=== PATIENT | female | born 1940 | race Caucasian/White ===

== ENCOUNTER 2021-07-08 21:13 | Inpatient (IN) | payer OTHER, SELFPAY ==
[~2021-07-08] VITALS: Ht 154.9 cm; Wt 75.7 kg
[2021-07-08 21:20] VITALS: BP_SYST 155
[2021-07-08] MEDS ORDERED: NACL 0.9% 1,000 ML IV ONE (22:30)
[2021-07-08] MEDS ORDERED: cefTRIAXone 1 GM IVPB PREMIX 50 ML IV ONE (22:30)
[2021-07-08 22:41] LABS: BILIRUBIN,URINE NEGATIVE (NEGATIVE); BLOOD, URINE NEGATIVE (NEGATIVE); CLARITY/URINE CLEAR (CLEAR); COLOR,URINE YELLOW (YELLOW); GLUCOSE,URINE NEGATIVE (NEGATIVE); KETONES,URINE 1+ (NEGATIVE); LEUKOCYTE ESTERASE ,URINE NEGATIVE (NEGATIVE); NITRITE, URINE NEGATIVE (NEGATIVE); PROTEIN URINE 1+ (NEGATIVE); UROBILINOGEN,URINE 0.2 (0.2-1.0)
[2021-07-08 22:57] LABS: BACTERIA,URINE MODERATE /HPF (None Seen); RBC,URINE 0-3 /HPF (0-3)
[2021-07-08 22:58] LABS: MUCUS,URINE None Seen /LPF (None Seen)
[2021-07-08] MEDS ORDERED: NACL 0.9% 800 ML IV ONE (23:30)
[2021-07-08] MEDS ORDERED: ONDANSETRON HCL 4 MG/2 ML VIAL IVP ONE (23:30)
[2021-07-08] MEDS ORDERED: ACETAMINOPHEN 325 MG TABLET PO PRN (23:45)
[2021-07-08] MEDS ORDERED: D5/0.45 NS 1,000 ML IV ONE (23:45)
[2021-07-08] MEDS ORDERED: ONDANSETRON HCL 4 MG/2 ML VIAL IVP PRN (23:45)
[2021-07-08] MEDS ORDERED: cloNIDine HCL 0.1 MG TABLET PO PRN (23:45)
[2021-07-08 23:50] LABS: BASOPHILS % (AUTO) 0.6 % (0.0-2.0); EOSINOPHILS % (AUTO) 0.4 % (0.0-4.0); HEMATOCRIT 38.8 % (36-48); HEMOGLOBIN 12.7 g/dL (12.0-16.0); LYMPHOCYTES # (AUTO) 0.5 K/uL (1.0-5.5); LYMPHOCYTES % (AUTO) 13.7 % (20.5-51.5); MEAN CORPUSCULAR HEMOGLOBIN 33 pg (27-31); MEAN CORPUSCULAR HGB CONC 33 % (32-36); MEAN CORPUSCULAR VOLUME 100 fL (79.0-98.0); MONOCYTES # (AUTO) 0.5 K/uL (0.0-1.0); MONOCYTES % (AUTO) 15.4 % (1.7-9.3); NEUTROPHILS # (AUTO) 2.3 K/uL (1.8-7.7); NEUTROPHILS % (AUTO) 69.9 % (40.0-70.0); PLATELET COUNT (AUTO) 158 K/uL (130-430); RED BLOOD CELL COUNT(AUTO) 3.87 MIL/uL (4.2-6.2); RED CELL DISTRIBUTION WIDTH 13.6 % (9.0-15.0); WHITE BLOOD COUNT (AUTO) 3.3 K/uL (4.8-10.8)
[2021-07-08 23:54] LABS: ANION GAP 7 (5-15); CALCIUM 8.2 mg/dL (8.4-11.0); CHLORIDE 104 mmol/L (98-107); CREATININE 0.53 mg/dL (0.55-1.30); GLUCOSE 110 mg/dL (70-99); POTASSIUM 3.5 mmol/L (3.5-5.1); SODIUM SERUM 141 mmol/L (136-145); UREA NITROGEN, BLOOD 14 mg/dL (8-21)
[2021-07-08 23:57] LABS: PROTHROMBIN TIME 10.4 SECS (9.5-12.5)
[2021-07-09 00:02] LABS: ALANINE AMINOTRANSFERASE 32 U/L (12-78); ALBUMIN 2.8 g/dL (3.4-4.8); ASPARTATE AMINOTRANSFERASE 30 U/L (10-37); TOTAL BILIRUBIN 0.5 mg/dL (0.0-1.0)
[2021-07-09] MEDS: cefTRIAXone 1 GM in D5W 50 ML IV SCH (03:00)
[2021-07-09 04:00] VITALS: BP_SYST 155
[2021-07-09 04:13] VITALS: BP_SYST 155
[2021-07-09 10:00] VITALS: BP_SYST 122
[2021-07-09] MEDS ORDERED: guaiFENesin/DEXTROMETHORPHAN 10 ML UDC PO PRN (11:15)
[2021-07-09 16:00] VITALS: BP_SYST 151
[2021-07-09 20:00] VITALS: BP_SYST 131
[2021-07-09] MEDS: ASCORBIC ACID 500 MG TABLET PO SCH (21:51)
[2021-07-09] MEDS: DOXYCYCLINE HYCLATE 100 MG in D5W 100 ML IV SCH (21:51)
[2021-07-10] VITALS: BP_SYST 150
[2021-07-10 07:52] LABS: ANION GAP 8 (5-15); CALCIUM 8.2 mg/dL (8.4-11.0); CHLORIDE 104 mmol/L (98-107); CREATININE 0.37 mg/dL (0.55-1.30); GLUCOSE 96 mg/dL (70-99); POTASSIUM 3.7 mmol/L (3.5-5.1); SODIUM SERUM 140 mmol/L (136-145); UREA NITROGEN, BLOOD 5 mg/dL (8-21)
[2021-07-10 08:00] VITALS: BP_SYST 140
[2021-07-10 08:10] LABS: ALANINE AMINOTRANSFERASE 24 U/L (12-78); ALBUMIN 2.6 g/dL (3.4-4.8); ASPARTATE AMINOTRANSFERASE 34 U/L (10-37); LACTATE DEHYDROGENASE 343 U/L (81-234); TOTAL BILIRUBIN 0.5 mg/dL (0.0-1.0)
[2021-07-10] MEDS: THIAMINE HCL 100 MG TABLET PO SCH (08:49)
[2021-07-10] MEDS: ASCORBIC ACID 500 MG TABLET PO SCH ×2 (08:49→23:40)
[2021-07-10] MEDS: CHOLECALCIFEROL (VITAMIN D3) 2,000 UNIT TABLET PO SCH (08:49)
[2021-07-10 09:03] LABS: INR 0.9 (0.8-1.2); PROTHROMBIN TIME 9.8 SECS (9.5-12.5)
[2021-07-10 10:38] LABS: C-REACTIVE PROTEIN QUANT 3.8 mg/dL (0-0.5)
[2021-07-10 11:46] LABS: BASOPHILS % (AUTO) 0.4 % (0.0-2.0); EOSINOPHILS % (AUTO) 0.2 % (0.0-4.0); HEMATOCRIT 39.4 % (36-48); HEMOGLOBIN 13.2 g/dL (12.0-16.0); LYMPHOCYTES # (AUTO) 0.5 K/uL (1.0-5.5); LYMPHOCYTES % (AUTO) 14.6 % (20.5-51.5); MEAN CORPUSCULAR HEMOGLOBIN 33 pg (27-31); MEAN CORPUSCULAR HGB CONC 34 % (32-36); MEAN CORPUSCULAR VOLUME 99 fL (79.0-98.0); MONOCYTES # (AUTO) 0.5 K/uL (0.0-1.0); MONOCYTES % (AUTO) 14.1 % (1.7-9.3); NEUTROPHILS # (AUTO) 2.6 K/uL (1.8-7.7); NEUTROPHILS % (AUTO) 70.7 % (40.0-70.0); PLATELET COUNT (AUTO) 184 K/uL (130-430); RED CELL DISTRIBUTION WIDTH 13.4 % (9.0-15.0); WHITE BLOOD COUNT (AUTO) 3.6 K/uL (4.8-10.8)
[2021-07-10] MEDS: DOXYCYCLINE HYCLATE 100 MG in D5W 100 ML IV SCH ×2 (13:10→23:41)
[2021-07-10] MEDS ORDERED: HALOPERIDOL LACTATE 5 MG/ML VIAL IVP PRN (14:15)
[2021-07-10] MEDS ORDERED: DULoxetine HCL 20 MG CAPSULE.DR PO ONE (17:00)
[2021-07-10 19:00] VITALS: BP_SYST 150
[2021-07-10] MEDS: cefTRIAXone 1 GM in D5W 50 ML IV SCH (21:00)
[2021-07-10] MEDS: METOPROLOL TARTRATE 25 MG TABLET PO SCH (23:40)
[2021-07-11 00:32] VITALS: BP_SYST 129
[2021-07-11] MEDS ORDERED: cefTRIAXone 1 GM IVPB PREMIX 50 ML IV ONE (00:59)
[2021-07-11] MEDS: LEVOTHYROXINE SODIUM 0.05 MG TABLET PO SCH (06:18)
[2021-07-11] MEDS: METOPROLOL TARTRATE 25 MG TABLET PO SCH ×2 (09:16→22:13)
[2021-07-11] MEDS: THIAMINE HCL 100 MG TABLET PO SCH (09:17)
[2021-07-11] MEDS: ASCORBIC ACID 500 MG TABLET PO SCH ×2 (09:17→22:13)
[2021-07-11] MEDS: DOXYCYCLINE HYCLATE 100 MG in D5W 100 ML IV SCH ×2 (09:19→22:48)
[2021-07-11] MEDS: CHOLECALCIFEROL (VITAMIN D3) 2,000 UNIT TABLET PO SCH (09:22)
[2021-07-11] MEDS: DULoxetine HCL 20 MG CAPSULE.DR PO SCH (15:30)
[2021-07-11 20:00] VITALS: BP_SYST 141
[2021-07-11] MEDS: cefTRIAXone 1 GM in D5W 50 ML IV SCH (22:49)
[2021-07-12] VITALS (7 sets, daily range): BP systolic 106–136
[2021-07-12] MEDS: LEVOTHYROXINE SODIUM 0.05 MG TABLET PO SCH (06:40)
[2021-07-12] MEDS: DULoxetine HCL 20 MG CAPSULE.DR PO SCH (09:00)
[2021-07-12] MEDS ORDERED: METO25TA6 PO (09:30)
[2021-07-12] MEDS ORDERED: SYN50 PO (09:30)
[2021-07-12] MEDS ORDERED: ASPI-1155 PO (09:30)
[2021-07-12] MEDS ORDERED: CEPH250C PO (09:30)
[2021-07-12] MEDS: METOPROLOL TARTRATE 25 MG TABLET PO SCH ×2 (10:01→21:23)
[2021-07-12] MEDS: THIAMINE HCL 100 MG TABLET PO SCH (10:01)
[2021-07-12] MEDS: CHOLECALCIFEROL (VITAMIN D3) 2,000 UNIT TABLET PO SCH (10:01)
[2021-07-12] MEDS: ASCORBIC ACID 500 MG TABLET PO SCH ×2 (10:01→21:22)
[2021-07-12] MEDS: DOXYCYCLINE HYCLATE 100 MG in D5W 100 ML IV SCH ×2 (10:07→21:21)
== END 2021-07-12 23:00 | DRG 871 ==
LOC: SED 21:13 → SMU 23:41
PROVIDERS: ADMIT Internal Medicine Hospice and Palliative Medicine; ATTEND Internal Medicine Hospice and Palliative Medicine
DX: A41.9 Sepsis, unspecified organism (principal); J96.01 Acute respiratory failure with hypoxia; U07.1 COVID-19; J12.82 Pneumonia due to coronavirus disease 2019; N39.0 Urinary tract infection, site not specified; E86.0 Dehydration; I10 Essential (primary) hypertension; Z90.49 Acquired absence of other specified parts of digestive tract
CPT/HCPCS: 36415; 70450-TC; 71045; 71250-TC; 76376; 80053; 81000; 82728; 83605; 83615; 83880; 84484; 85025; 85379; 85384; 85610-TC; 85730-TC; 86140; 87040; 87086; 87186-TC; 93005; 96374; 99285; J0696; J2405; J3490; J7060

== ENCOUNTER 2023-12-06 16:04 | Inpatient (IN) | payer OTHER ==
[~2023-12-06] VITALS: Ht 157.5 cm; Wt 65.8 kg
[~2023-12-06 16:04] MED LIST: ASPI-1155 PO; CEPH250C PO; METO25TA6 PO; SYN50 PO
[2023-12-06 16:10] VITALS: BP_SYST 114; PULSE 87; RESP 18; TEMP 98.3; O2SAT 97
[2023-12-06 16:35] LABS: BILIRUBIN,URINE NEGATIVE (NEGATIVE); BLOOD, URINE NEGATIVE (NEGATIVE); CLARITY/URINE CLEAR (CLEAR); COLOR,URINE YELLOW (YELLOW); GLUCOSE,URINE NEGATIVE (NEGATIVE); KETONES,URINE NEGATIVE (NEGATIVE); LEUKOCYTE ESTERASE ,URINE TRACE (NEGATIVE); NITRITE, URINE NEGATIVE (NEGATIVE); PH,URINE 5.5 (5.0-8.0); PROTEIN URINE NEGATIVE (NEGATIVE); UROBILINOGEN,URINE 0.2 (0.2-1.0)
[2023-12-06 16:43] LABS: BACTERIA,URINE FEW /HPF (None Seen); MUCUS,URINE None Seen /LPF (None Seen); RBC,URINE 0-3 /HPF (0-3)
[2023-12-06 18:11] LABS: HEMOGLOBIN 14.1 g/dL (12.0-16.0); RED CELL DISTRIBUTION WIDTH 14.6 % (9.0-15.0)
[2023-12-06 18:15] LABS: BASOPHILS % (AUTO) 0.6 % (0.0-2.0); EOSINOPHILS # (AUTO) 0.1 K/uL (0.0-0.4); EOSINOPHILS % (AUTO) 1.1 % (0.0-4.0); HEMATOCRIT 41.9 % (36-48); LYMPHOCYTES # (AUTO) 1.4 K/uL (1.0-5.5); LYMPHOCYTES % (AUTO) 16.5 % (20.5-51.5); MEAN CORPUSCULAR HEMOGLOBIN 35 pg (27-31); MEAN CORPUSCULAR HGB CONC 34 % (32-36); MEAN CORPUSCULAR VOLUME 103 fL (79.0-98.0); MONOCYTES # (AUTO) 0.7 K/uL (0.0-1.0); MONOCYTES % (AUTO) 8.6 % (1.7-9.3); NEUTROPHILS # (AUTO) 6.1 K/uL (1.8-7.7); NEUTROPHILS % (AUTO) 73.2 % (40.0-70.0); RED BLOOD CELL COUNT(AUTO) 4.08 MIL/uL (4.2-6.2); WHITE BLOOD COUNT (AUTO) 8.4 K/uL (4.8-10.8)
[2023-12-06] MEDS: cefTRIAXone 1 GM IVPB PREMIX 50 ML IV ONE (18:16)
[2023-12-06 18:23] LABS: PLATELET COUNT (AUTO) 247 K/uL (130-430)
[2023-12-06 18:33] LABS: ALANINE AMINOTRANSFERASE 12 U/L (12-78); ALBUMIN 3.5 g/dL (3.4-4.8); ANION GAP 9 (5-15); ASPARTATE AMINOTRANSFERASE 18 U/L (10-37); BILIRUBIN,DIRECT 0.1 mg/dL (0.0-0.3); CALCIUM 8.8 mg/dL (8.4-11.0); CARBON DIOXIDE 27 mmol/L (23-29); CHLORIDE 104 mmol/L (98-107); CREATININE 0.71 mg/dL (0.55-1.30); GLUCOSE 97 mg/dL (74-106); POTASSIUM 3.9 mmol/L (3.5-5.1); SODIUM SERUM 140 mmol/L (136-145); TOTAL BILIRUBIN 0.5 mg/dL (0.0-1.0); TOTAL PROTEIN, SERUM 7.8 g/dL (6.4-8.3); UREA NITROGEN, BLOOD 19 mg/dL (8-21)
[2023-12-06] MEDS: NACL 0.9% 1,000 ML IV ONE (18:35)
[2023-12-06 19:06] LABS: PROTHROMBIN TIME 10.3 SECS (9.5-12.5)
[2023-12-06] MEDS ORDERED: ALBUTEROL SULFATE 0.083% 2.5 MG/3 ML VIAL.NEB INH PRN (20:30)
[2023-12-06] MEDS ORDERED: ACETAMINOPHEN 325 MG TABLET PO PRN ×2 (20:30→20:45)
[2023-12-06] MEDS ORDERED: ONDANSETRON HCL 4 MG/2 ML VIAL IVP PRN (20:30)
[2023-12-06] MEDS ORDERED: HYDROcodone/ACETAMIN 10-325 MG TAB PO PRN (20:30)
[2023-12-06] MEDS ORDERED: HYDROcodone/ACETAMIN 5-325 MG TAB (NORCO/ VICODIN) PO PRN (20:30)
[2023-12-06] MEDS ORDERED: MORPHINE 2 MG/ML INJ. SYRINGE IVP PRN (20:30)
[2023-12-06 21:00] VITALS: BP_SYST 136; PULSE 83; O2SAT 97
[2023-12-06 23:57] VITALS: BP_SYST 163; PULSE 67; RESP 18
[2023-12-07 01:23] VITALS: O2SAT 97
[2023-12-07 06:52] LABS: BASOPHILS % (AUTO) 0.5 % (0.0-2.0); EOSINOPHILS # (AUTO) 0.1 K/uL (0.0-0.4); EOSINOPHILS % (AUTO) 1.7 % (0.0-4.0); HEMATOCRIT 37.2 % (36-48); HEMOGLOBIN 12.4 g/dL (12.0-16.0); LYMPHOCYTES # (AUTO) 1.4 K/uL (1.0-5.5); LYMPHOCYTES % (AUTO) 21.3 % (20.5-51.5); MEAN CORPUSCULAR HEMOGLOBIN 35 pg (27-31); MEAN CORPUSCULAR HGB CONC 33 % (32-36); MEAN CORPUSCULAR VOLUME 104 fL (79.0-98.0); MONOCYTES # (AUTO) 0.5 K/uL (0.0-1.0); MONOCYTES % (AUTO) 7.9 % (1.7-9.3); NEUTROPHILS # (AUTO) 4.4 K/uL (1.8-7.7); NEUTROPHILS % (AUTO) 68.6 % (40.0-70.0); PLATELET COUNT (AUTO) 226 K/uL (130-430); RED BLOOD CELL COUNT(AUTO) 3.58 MIL/uL (4.2-6.2); RED CELL DISTRIBUTION WIDTH 14.4 % (9.0-15.0); WHITE BLOOD COUNT (AUTO) 6.4 K/uL (4.8-10.8)
[2023-12-07 07:02] LABS: ALANINE AMINOTRANSFERASE 13 U/L (12-78); ALBUMIN 2.8 g/dL (3.4-4.8); ANION GAP 10 (5-15); ASPARTATE AMINOTRANSFERASE 17 U/L (10-37); CALCIUM 8.4 mg/dL (8.4-11.0); CARBON DIOXIDE 25 mmol/L (23-29); CHLORIDE 107 mmol/L (98-107); GLUCOSE 93 mg/dL (74-106); POTASSIUM 3.7 mmol/L (3.5-5.1); SODIUM SERUM 142 mmol/L (136-145); TOTAL BILIRUBIN 0.6 mg/dL (0.0-1.0); TOTAL PROTEIN, SERUM 6.5 g/dL (6.4-8.3); UREA NITROGEN, BLOOD 11 mg/dL (8-21)
[2023-12-07 08:00] VITALS: BP_SYST 165; PULSE 78; RESP 20; TEMP 97.4; O2SAT 99
[2023-12-07] MEDS: cefTRIAXone 1 GM IVPB PREMIX 50 ML IV SCH (09:23)
[2023-12-07 12:00] VITALS: BP_SYST 139; PULSE 73; RESP 18; TEMP 98.4; O2SAT 98
[2023-12-07] MEDS: LEVOTHYROXINE SODIUM 0.05 MG TABLET PO ONE (12:26)
[2023-12-07] MEDS: METOPROLOL TARTRATE 25 MG TABLET PO ONE (12:27)
[2023-12-07 16:00] VITALS: BP_SYST 159; PULSE 64; RESP 17; TEMP 97.6; O2SAT 97
[2023-12-07] MEDS ORDERED: SYN50 PO (17:20)
[2023-12-07] MEDS ORDERED: METO50TA7 PO (17:20)
[2023-12-07] MEDS ORDERED: CEL20 PO (17:20)
[2023-12-07 20:00] VITALS: O2SAT 98
[2023-12-07 21:40] VITALS: BP_SYST 189; PULSE 71; RESP 20; TEMP 98
[2023-12-07] MEDS: QUEtiapine FUMARATE 25 MG TABLET PO SCH (23:11)
[2023-12-07] MEDS: METOPROLOL TARTRATE 25 MG TABLET PO SCH (23:11)
[2023-12-08 02:23] VITALS: BP_SYST 146; PULSE 65; RESP 18; TEMP 96.5
[2023-12-08 04:47] LABS: BASOPHILS # (AUTO) 0.1 K/uL (0.0-0.2); BASOPHILS % (AUTO) 0.8 % (0.0-2.0); EOSINOPHILS # (AUTO) 0.2 K/uL (0.0-0.4); EOSINOPHILS % (AUTO) 2.7 % (0.0-4.0); HEMATOCRIT 40.4 % (36-48); HEMOGLOBIN 13.4 g/dL (12.0-16.0); LYMPHOCYTES # (AUTO) 1.8 K/uL (1.0-5.5); LYMPHOCYTES % (AUTO) 22.6 % (20.5-51.5); MEAN CORPUSCULAR HEMOGLOBIN 34 pg (27-31); MEAN CORPUSCULAR HGB CONC 33 % (32-36); MEAN CORPUSCULAR VOLUME 103 fL (79.0-98.0); MONOCYTES # (AUTO) 0.7 K/uL (0.0-1.0); MONOCYTES % (AUTO) 8.3 % (1.7-9.3); NEUTROPHILS # (AUTO) 5.2 K/uL (1.8-7.7); NEUTROPHILS % (AUTO) 65.6 % (40.0-70.0); PLATELET COUNT (AUTO) 276 K/uL (130-430); RED BLOOD CELL COUNT(AUTO) 3.92 MIL/uL (4.2-6.2); RED CELL DISTRIBUTION WIDTH 14.6 % (9.0-15.0)
[2023-12-08 05:25] LABS: ALANINE AMINOTRANSFERASE 10 U/L (12-78); ALBUMIN 3.1 g/dL (3.4-4.8); ANION GAP 11 (5-15); ASPARTATE AMINOTRANSFERASE 12 U/L (10-37); CALCIUM 8.9 mg/dL (8.4-11.0); CARBON DIOXIDE 25 mmol/L (23-29); CHLORIDE 106 mmol/L (98-107); CREATININE 0.76 mg/dL (0.55-1.30); GLUCOSE 103 mg/dL (74-106); POTASSIUM 4.5 mmol/L (3.5-5.1); SODIUM SERUM 142 mmol/L (136-145); TOTAL BILIRUBIN 0.4 mg/dL (0.0-1.0); TOTAL PROTEIN, SERUM 7.2 g/dL (6.4-8.3); UREA NITROGEN, BLOOD 16 mg/dL (8-21)
[2023-12-08] MEDS: LEVOTHYROXINE SODIUM 0.05 MG TABLET PO SCH (07:52)
[2023-12-08 08:01] VITALS: BP_SYST 148; PULSE 81; RESP 17; TEMP 98.1
[2023-12-08 08:05] VITALS: O2SAT 99
[2023-12-08 12:05] VITALS: BP_SYST 145; PULSE 78; RESP 18; TEMP 98.6
[2023-12-08] MEDS ORDERED: LEVOTHYROXINE SODIUM 0.05 MG TABLET PO SCH (15:30)
[2023-12-08 16:05] VITALS: BP_SYST 142; PULSE 77; RESP 18; TEMP 97.1
[2023-12-08 20:00] VITALS: BP_SYST 122; PULSE 81; RESP 18; TEMP 97.5
[2023-12-09] VITALS (8 sets, daily range): BP systolic 126–156; PULSE 66–89; RESP 17–20; TEMP 97.6–98.4; O2SAT 94–99
[2023-12-09 09:28] LABS: BASOPHILS # (AUTO) 0.1 K/uL (0.0-0.2); BASOPHILS % (AUTO) 0.8 % (0.0-2.0); EOSINOPHILS # (AUTO) 0.1 K/uL (0.0-0.4); EOSINOPHILS % (AUTO) 1.6 % (0.0-4.0); HEMATOCRIT 43.3 % (36-48); HEMOGLOBIN 14.3 g/dL (12.0-16.0); LYMPHOCYTES # (AUTO) 0.9 K/uL (1.0-5.5); LYMPHOCYTES % (AUTO) 12.7 % (20.5-51.5); MEAN CORPUSCULAR HEMOGLOBIN 35 pg (27-31); MEAN CORPUSCULAR HGB CONC 33 % (32-36); MEAN CORPUSCULAR VOLUME 104 fL (79.0-98.0); MONOCYTES # (AUTO) 0.4 K/uL (0.0-1.0); MONOCYTES % (AUTO) 6.2 % (1.7-9.3); NEUTROPHILS # (AUTO) 5.3 K/uL (1.8-7.7); NEUTROPHILS % (AUTO) 78.7 % (40.0-70.0); PLATELET COUNT (AUTO) 274 K/uL (130-430); RED BLOOD CELL COUNT(AUTO) 4.15 MIL/uL (4.2-6.2); RED CELL DISTRIBUTION WIDTH 14.5 % (9.0-15.0); WHITE BLOOD COUNT (AUTO) 6.7 K/uL (4.8-10.8)
[2023-12-09] MEDS: METOPROLOL SUCCINATE 50 MG TAB.SR.24H (TOPROL XL) PO SCH (09:49)
[2023-12-09 09:54] LABS: ALANINE AMINOTRANSFERASE 12 U/L (12-78); ALBUMIN 3.2 g/dL (3.4-4.8); ANION GAP 8 (5-15); ASPARTATE AMINOTRANSFERASE 14 U/L (10-37); CARBON DIOXIDE 29 mmol/L (23-29); CHLORIDE 105 mmol/L (98-107); CREATININE 0.92 mg/dL (0.55-1.30); GLUCOSE 95 mg/dL (74-106); POTASSIUM 3.9 mmol/L (3.5-5.1); SODIUM SERUM 142 mmol/L (136-145); THYROID STIMULATING HORMONE 0.77 uIu/mL (0.34-4.82); TOTAL BILIRUBIN 0.5 mg/dL (0.0-1.0); TOTAL PROTEIN, SERUM 7.5 g/dL (6.4-8.3); UREA NITROGEN, BLOOD 20 mg/dL (8-21)
[2023-12-09] MEDS: LORazepam 2 MG/ML VIAL IM PRN (13:20)
[2023-12-10 01:50] VITALS: BP_SYST 144; PULSE 69; RESP 18; TEMP 96.6
[2023-12-10 07:03] LABS: BASOPHILS # (AUTO) 0.1 K/uL (0.0-0.2); BASOPHILS % (AUTO) 0.8 % (0.0-2.0); EOSINOPHILS # (AUTO) 0.2 K/uL (0.0-0.4); EOSINOPHILS % (AUTO) 2.8 % (0.0-4.0); HEMATOCRIT 39.2 % (36-48); HEMOGLOBIN 12.9 g/dL (12.0-16.0); LYMPHOCYTES # (AUTO) 1.3 K/uL (1.0-5.5); LYMPHOCYTES % (AUTO) 19.8 % (20.5-51.5); MEAN CORPUSCULAR HEMOGLOBIN 34 pg (27-31); MEAN CORPUSCULAR HGB CONC 33 % (32-36); MEAN CORPUSCULAR VOLUME 104 fL (79.0-98.0); MONOCYTES # (AUTO) 0.6 K/uL (0.0-1.0); MONOCYTES % (AUTO) 9.4 % (1.7-9.3); NEUTROPHILS # (AUTO) 4.3 K/uL (1.8-7.7); NEUTROPHILS % (AUTO) 67.2 % (40.0-70.0); PLATELET COUNT (AUTO) 231 K/uL (130-430); RED BLOOD CELL COUNT(AUTO) 3.77 MIL/uL (4.2-6.2); RED CELL DISTRIBUTION WIDTH 14.6 % (9.0-15.0); WHITE BLOOD COUNT (AUTO) 6.4 K/uL (4.8-10.8)
[2023-12-10 07:31] LABS: ALANINE AMINOTRANSFERASE 14 U/L (12-78); ALBUMIN 2.8 g/dL (3.4-4.8); ANION GAP 6 (5-15); ASPARTATE AMINOTRANSFERASE 18 U/L (10-37); CALCIUM 8.4 mg/dL (8.4-11.0); CARBON DIOXIDE 27 mmol/L (23-29); CHLORIDE 106 mmol/L (98-107); CREATININE 0.65 mg/dL (0.55-1.30); GLUCOSE 92 mg/dL (74-106); POTASSIUM 4.5 mmol/L (3.5-5.1); SODIUM SERUM 139 mmol/L (136-145); TOTAL BILIRUBIN 0.4 mg/dL (0.0-1.0); TOTAL PROTEIN, SERUM 6.7 g/dL (6.4-8.3); UREA NITROGEN, BLOOD 23 mg/dL (8-21)
[2023-12-10 10:00] VITALS: O2SAT 97
[2023-12-10 11:34] VITALS: BP_SYST 146; PULSE 74; RESP 18; TEMP 96.8; O2SAT 95
[2023-12-10 13:58] VITALS: O2SAT 95
[2023-12-10 20:00] VITALS: BP_SYST 143; PULSE 94; RESP 16; TEMP 97.2; O2SAT 96
[2023-12-10] MEDS: HALOPERIDOL LACTATE 5 MG/ML VIAL IM PRN (20:14)
[2023-12-11] VITALS: BP_SYST 126; PULSE 88; RESP 16; TEMP 97.8; O2SAT 96
[2023-12-11 08:00] VITALS: BP_SYST 160; PULSE 82; RESP 18; TEMP 97.6; O2SAT 96; O2SAT 98
[2023-12-11 12:00] VITALS: BP_SYST 139; PULSE 84; RESP 16; TEMP 96.7; O2SAT 97
[2023-12-11] MEDS ORDERED: SER25 PO (14:20)
[2023-12-11] MEDS: hydrALAZINE HCL 20 MG/ML VIAL IVP PRN (15:05)
[2023-12-11 15:30] VITALS: BP_SYST 141; PULSE 78; RESP 18; TEMP 98.1; O2SAT 95
[2023-12-11 16:30] VITALS: BP_SYST 150; PULSE 86; RESP 18; TEMP 98.4; O2SAT 95
== END 2023-12-11 17:16 | disposition home health service (06) | DRG 71 ==
LOC: SED 16:04 → SMU 20:25
PROVIDERS: ADMIT Family Medicine; ATTEND Family Medicine
DX: G93.41 Metabolic encephalopathy (principal); F02.82 Dementia in other diseases classified elsewhere, unspecified severity, with psychotic disturbance; N39.0 Urinary tract infection, site not specified; R45.851 Suicidal ideations; G30.9 Alzheimer's disease, unspecified; F32.A Depression, unspecified; E03.9 Hypothyroidism, unspecified; Z60.2 Problems related to living alone; Z79.82 Long term (current) use of aspirin; Z79.899 Other long term (current) drug therapy; I16.0 Hypertensive urgency
CPT/HCPCS: 36415; 71045; 80048; 80053; 80076; 81000; 81001; 81015; 83605; 84443; 85025; 85610; 85730; 87040; 87086; 93005; 94070; 94760; 96365; 97110-GP; 97116-GP; 97530-GP; 99285; J0360; J0696; J1630; J2060